=== PATIENT | female | born 1945 | race Hispanic/Latino ===

== ENCOUNTER 2019-05-19 11:10 | Emergency (ER) | payer MEDICARE, OTHER ==
[2019-05-19 13:14] VITALS: BP 150/68
[2019-05-19] MEDS ORDERED: ACETAMINOPHEN 325 MG TAB PO ONE (13:15)
[2019-05-19] MEDS ORDERED: MECLIZINE 25 MG TAB PO ONE (13:39)
[2019-05-19] MEDS ORDERED: ONDANSETRON 4 MG/2 ML INJ IV ONE (13:39)
[2019-05-19] MEDS ORDERED: KETOROLAC 30 MG/1 ML INJ IV ONE (13:40)
[2019-05-19 14:04] LABS: Basophils % (Auto) 0.5 % (0.0-1.8); Eosinophils % (Auto) 0.1 % (0.0-4.3); Hematocrit 27.7 % (30.3-42.9); Hemoglobin 9.5 gm/dl (10.1-14.3); Lymphocytes # (Auto) 1.3 K/mm3 (1.2-5.4); Lymphocytes % (Auto) 15.8 % (13.4-35.0); Mean Corpuscular HGB Conc 34 % (30-34); Monocytes # (Auto) 0.6 K/mm3 (0.0-0.8); Monocytes % (Auto) 7.8 % (0.0-7.3); Red Blood Count 2.44 M/mm3 (3.65-5.03)
[2019-05-19 14:06] LABS: Mean Corpuscular Volume 114 fl (79-97)
[2019-05-19 14:22] LABS: BUN/Creatinine Ratio 20; Blood Urea Nitrogen 10 mg/dL (7-17); Calcium 8.7 mg/dL (8.4-10.2); Hemolysis Index 13
[2019-05-19 14:42] LABS: Platelet Count 89 K/mm3 (140-440)
--- NOTE | 2019-05-19 14:55 | Cat Scan Report ---
CT HEAD WITHOUT CONTRAST INDICATION : Headache after unspecified trauma. TECHNIQUE: Axial, coronal and sagittal CT imaging was performed from the skull apex through the skul l base without contrast. All CT scans at this location are performed using CT dose reduction for ALA RA by means of automated exposure control. COMPARISON: CT head without contrast from 03/26/2015. FINDINGS: PARENCHYMA: No mass, midline shift, hemorrhage, extraaxial collection or acute territorial infarctio n. There is age-appropriate generalized atrophy. Probable chronic microvascular ischemic changes are noted along the periventricular/deep white matter. Basal ganglial calcifications are noted bilaterall y. VENTRICLES: Prominent secondary to atrophy without an acute abnormality. SOFT TISSUES: There is a midline posterior parietal scalp contusion with multifocal gas along the sc alp. Skin jian are partially visualized at this location. The remaining soft tissues appear unrema rkable. No significant abnormality of the orbits is seen. BONES: No acute osseous abnormality. SINUSES: No significant abnormality. ADDITIONAL FINDINGS: There is dense vertebral and internal carotid atherosclerosis. IMPRESSION: 1. No acute intracranial abnormality. 2. Posterior parietal scalp injury. 3. Additional chronic changes as above. Signer Name: Leighton Mcduffie MD Signed: 05/19/2019 2:51 PM Workstation Name: [id number]
[2019-05-19] MEDS ORDERED: ONDANSETRON 4 MG ODT TAB PO ONE (15:54)
[2019-05-19] MEDS ORDERED: HYDROcodone/ACETAMINOPHEN 7.5-325MG TAB PO ONE (15:54)
--- NOTE | 2019-05-19 15:58 | Emergency Department Report ---
ED Head Trauma HPI - General Chief complaint: Nausea/Vomiting/Diarrhea Stated complaint: N/V Time Seen by Provider: 05/19/19 13:29 Source: EMS Mode of arrival: Stretcher Limitations: No Limitations - History of Present Illness Initial comments: Patient is a 74-year-old female who suffered a ground-level fall 2 days ago. Patient states that since the fall she has had persistent nausea vomiting and dizziness whenever she moves her head. Patient was seen at the outside facility and had laceration repaired to the occiput. Patient states she cannot remember whether she had a CT of the head. Patient did have loss of consciousness with the fall. Patient states she has been unable to keep down most of her medications. Patient states she had a glucose of 300 was able to keep down one of her metformin pills earlier today. Patient states the headache is a 9 out of 10 in severity. - Related Data Home Medications Medication Instructions Recorded Confirmed Last Taken Cetirizine HCl [ZyrTEC 10mg cap] 10 mg PO QDAY PRN 05/05/14 03/26/15 03/25/15 Latanoprost 0.005% 1 drop OP QPM 05/05/14 03/26/15 03/25/15 Losartan [Cozaar] 50 mg PO BID 05/05/14 03/26/15 03/25/15 Omeprazole [PriLOSEC] 20 mg PO BID 05/05/14 03/26/15 03/25/15 metFORMIN [Glucophage] 1,000 mg PO BID 05/05/14 03/26/15 03/25/15 Previous Rx's Medication Instructions Recorded Last Taken Type Promethazine [Phenergan] 25 mg PO Q6H PRN #10 tablet 05/06/14 03/25/15 Rx oxyCODONE /ACETAMINOPHEN [Percocet 1 tab PO Q6H PRN #20 tablet 03/28/15 Unknown Rx 5/325 mg] Cyclobenzaprine HCl [Flexeril 5 MG 5 mg PO Q8HR PRN #10 tab 03/20/16 Unknown Rx TAB] Ibuprofen [Motrin] 800 mg PO Q8HR PRN #10 tablet 03/20/16 Unknown Rx HYDROcodone/APAP 5-325 [[place] 1 each PO Q6HR PRN #14 tablet 05/19/19 Unknown Rx 5/325] Meclizine [Antivert] 25 mg PO TID PRN #12 tablet 05/19/19 Unknown Rx Ondansetron [Zofran Odt] 4 mg PO Q8HR #10 tab.rapdis 05/19/19 Unknown Rx Allergies/Adverse reactions: Allergies Allergy/AdvReac Type Severity Reaction Status Date / Time codeine AdvReac Itching Verified 05/05/14 10:50 erythromycin base AdvReac Anaphylaxis Verified 05/05/14 10:50 metoclopramide HCl AdvReac Makes me Verified 05/05/14 12:27 [From Reglan] act crazy Sulfa (Sulfonamide AdvReac BLISTERS Verified 05/05/14 12:27 Antibiotics) IN MOUTH ED Review of Systems ROS: Stated complaint: N/V Other details as noted in HPI Comment: All other systems reviewed and negative ED Past Medical Hx - Past Medical History Previous Medical History?: Yes Hx Hypertension: Yes Hx Diabetes: Yes Hx GERD: Yes Hx Arthritis: Yes (hands) Hx Tuberculosis: Yes (childhood) Additional medical history: GLAUCOMA - Surgical History Past Surgical History?: Yes Hx Cholecystectomy: Yes (05/17) Additional Surgical History: Spine Surgery December 2014 - Social History Smoking Status: Unknown if ever smoked Substance Use Type: None - Medications Home Medications: Home Medications Medication Instructions Recorded Confirmed Last Taken Type Cetirizine HCl [ZyrTEC 10mg cap] 10 mg PO QDAY PRN 05/05/14 03/26/15 03/25/15 History Latanoprost 0.005% 1 drop OP QPM 05/05/14 03/26/15 03/25/15 History Losartan [Cozaar] 50 mg PO BID 05/05/14 03/26/15 03/25/15 History Omeprazole [PriLOSEC] 20 mg PO BID 05/05/14 03/26/15 03/25/15 History metFORMIN [Glucophage] 1,000 mg PO BID 05/05/14 03/26/15 03/25/15 History Promethazine [Phenergan] 25 mg PO Q6H PRN #10 tablet 05/06/14 03/26/15 03/25/15 Rx oxyCODONE /ACETAMINOPHEN [Percocet 1 tab PO Q6H PRN #20 tablet 03/28/15 Unknown Rx 5/325 mg] Cyclobenzaprine HCl [Flexeril 5 MG 5 mg PO Q8HR PRN #10 tab 03/20/16 Unknown Rx TAB] Ibuprofen [Motrin] 800 mg PO Q8HR PRN #10 tablet 03/20/16 Unknown Rx HYDROcodone/APAP 5-325 [[place] 1 each PO Q6HR PRN #14 tablet 05/19/19 Unknown Rx 5/325] Meclizine [Antivert] 25 mg PO TID PRN #12 tablet 05/19/19 Unknown Rx Ondansetron [Zofran Odt] 4 mg PO Q8HR #10 tab.rapdis 05/19/19 Unknown Rx ED Physical Exam - General Limitations: No Limitations General appearance: alert, in no apparent distress - Head Head exam: Present: normocephalic. Absent: atraumatic (`jian in place at posterior scalp) - Eye Eye exam: Present: normal appearance, PERRL, EOMI - ENT ENT exam: Present: mucous membranes moist - Neck Neck exam: Present: normal inspection - Respiratory Respiratory exam: Present: normal lung sounds bilaterally. Absent: respiratory distress - Cardiovascular Cardiovascular Exam: Present: regular rate, normal rhythm. Absent: systolic murmur, diastolic murmur, rubs, gallop - GI/Abdominal GI/Abdominal exam: Present: soft, normal bowel sounds. Absent: distended, tenderness, guarding, rebound - Extremities Exam Extremities exam: Present: normal inspection, full ROM, tenderness (bilateral forearms) - Back Exam Back exam: Present: normal inspection - Neurological Exam Neurological exam: Present: alert, oriented X3 - Psychiatric Psychiatric exam: Present: normal affect, normal mood - Skin Skin exam: Present: warm, dry, intact, normal color. Absent: rash ED Course Vital Signs 05/19/19 05/19/19 05/19/19 11:10 12:03 12:30 Temperature 97.8 F Pulse Rate 63 65 68 Respiratory 14 14 13 Rate Blood Pressure 146/65 150/62 O2 Sat by Pulse 97 99 98 Oximetry 05/19/19 13:00 Temperature Pulse Rate 62 Respiratory 11 L Rate Blood Pressure 150/68 O2 Sat by Pulse 100 Oximetry - Lab Data Result diagrams: 05/19/19 13:32 05/19/19 13:41 Lab Results 05/19/19 05/19/19 Range/Units 13:32 13:41 WBC 8.4 (4.5-11.0) K/mm3 RBC 2.44 L (3.65-5.03) M/mm3 Hgb 9.5 L (10.1-14.3) gm/dl Hct 27.7 L (30.3-42.9) % MCV 114 H (79-97) fl MCH 39 H (28-32) pg MCHC 34 (30-34) % RDW 14.0 (13.2-15.2) % Plt Count 89 L (140-440) K/mm3 Lymph % (Auto) 15.8 (13.4-35.0) % [place] % (Auto) 7.8 H (0.0-7.3) % Eos % (Auto) 0.1 (0.0-4.3) % Baso % (Auto) 0.5 (0.0-1.8) % Lymph # 1.3 (1.2-5.4) K/mm3 [place] # 0.6 (0.0-0.8) K/mm3 Eos # 0.0 (0.0-0.4) K/mm3 Baso # 0.0 (0.0-0.1) K/mm3 Seg Neutrophils % 75.8 H (40.0-70.0) % Seg Neutrophils # 6.3 (1.8-7.7) K/mm3 Sodium 137 (137-145) mmol/L Potassium 3.7 (3.6-5.0) mmol/L Chloride 99.4 (98-107) mmol/L Carbon Dioxide 20 L (22-30) mmol/L Anion Gap 21 mmol/L BUN 10 (7-17) mg/dL Creatinine 0.5 L (0.7-1.2) mg/dL Estimated GFR > 60 ml/min BUN/Creatinine Ratio 20 % Glucose 166 H (65-100) mg/dL Calcium 8.7 (8.4-10.2) mg/dL Despite the patient's nausea vomiting and unable to keep down her medications her glucose is only slightly elevated the patient is not in DKA - Radiology Data CT HEAD WITHOUT CONTRAST INDICATION : Headache after unspecified trauma. TECHNIQUE: Axial, coronal and sagittal CT imaging was performed from the skull apex through the skull base without contrast. All CT scans at this location are performed using CT dose reduction for ALARA by means of automated exposure control. COMPARISON: CT head without contrast from 03/26/2015. FINDINGS: PARENCHYMA: No mass, midline shift, hemorrhage, extraaxial collection or acute territorial infarction. There is age-appropriate generalized atrophy. Probable chronic microvascular ischemic changes are noted along the periventricular/deep white matter. Basal ganglial calcifications are noted bilaterally. VENTRICLES: Prominent secondary to atrophy without an acute abnormality. SOFT TISSUES: There is a midline posterior parietal scalp contusion with multifocal gas along the scalp. Skin jian are partially visualized at this location. The remaining soft tissues appear u nremarkable. No significant abnormality of the orbits is seen. BONES: No acute osseous abnormality. SINUSES: No significant abnormality. ADDITIONAL FINDINGS: There is dense vertebral and internal carotid atherosclerosis. IMPRESSION: 1. No acute intracranial abnormality. 2. Posterior parietal scalp injury. 3. Additional chronic changes as above. Signer Name: Leighton Mcduffie MD Signed: 05/19/2019 2:51 PM Workstation Name: [id number] - Medical Decision Making CT head was ordered to ensure that the patient did not have an intracranial hemorrhage. Patient's had persistent headache and dizziness since head injury. Patient states she is unaware of receiving a CT at the outside facility. Patient did have loss of consciousness. CT shows no intracranial bleed. Patient was given medications with dramatic relief. Her nausea was controlled and she was able to keep down Vicodin here in the emergency department. Patient be discharged home. Critical care attestation.: If time is entered above; I have spent that time in minutes in the direct care o f this critically ill patient, excluding procedure time. ED Disposition Clinical Impression: Post concussion syndrome, Nausea & vomiting, Type 2 diabetes mellitus Disposition: - TO HOME OR SELFCARE Is pt being admited?: No Does the pt Need Aspirin: No Condition: Stable Instructions: Concussion (ED), Post Concussion Syndrome (ED) Time of Disposition: 16:00
== END 2019-05-19 16:19 | disposition home or self-care (01) ==
LOC: ED 11:10
DX: F07.81 Postconcussional syndrome (principal); E11.9 Type 2 diabetes mellitus without complications; R11.2 Nausea with vomiting, unspecified; I10 Essential (primary) hypertension; K21.9 Gastro-esophageal reflux disease without esophagitis; M19.042 Primary osteoarthritis, left hand; M19.041 Primary osteoarthritis, right hand; Z90.49 Acquired absence of other specified parts of digestive tract
CPT/HCPCS: 36415; 70450; 80048; 85025; 96374; 96375; 99284; J1885; J2405; Q0162

== ENCOUNTER 2022-01-18 10:31 | Emergency (ER) | payer MEDICARE, OTHER ==
[2022-01-18] MEDS ORDERED: SODIUM CHLORIDE 0.9% 1000 ML 1,000 ML IV ONE (12:54)
--- NOTE | 2022-01-18 13:00 | Emergency Department Report ---
ED Syncope HPI - General Chief Complaint: Syncope Stated Complaint: SYNCOPAL EPISODE Time Seen by Provider: 01/18/22 12:54 - History of Present Illness Initial Comments: 76 yo F with h/o Htn and diabetes with dementia currently on medications such as memantine, metoprolol and furosemide who now present with an episode of syncope that occurred while she was going to the toilet at night. Pt also mentioned that she has been having gait problem for the last 4 months and have seen several doctors but not neurologist. She also mentioned that she has been having dark tarred stool for that same time and have had blood product infusions as well. No fever or chills reported. No other modifying or associated factors reported. - Related Data Allergies/Adverse Reactions: Allergies codeine Adverse Reaction (Verified 01/18/22 10:50) Itching erythromycin base Adverse Reaction (Verified 01/18/22 10:50) Anaphylaxis metoclopramide HCl [From Reglan] Adverse Reaction (Verified 01/18/22 10:50) Makes me act crazy Sulfa (Sulfonamide Antibiotics) Adverse Reaction (Verified 01/18/22 10:50) BLISTERS IN MOUTH Home Medications: Ambulatory Orders Cetirizine HCl [ZyrTEC 10mg cap] 10 mg PO QDAY PRN 05/05/14 Latanoprost 0.005% 1 drop OP QPM 05/05/14 Losartan [Cozaar] 50 mg PO BID 05/05/14 Omeprazole [PriLOSEC] 20 mg PO BID 05/05/14 metFORMIN [Glucophage] 1,000 mg PO BID 05/05/14 Promethazine [Phenergan] 25 mg PO Q6H PRN #10 tablet 05/06/14 oxyCODONE /ACETAMINOPHEN [Percocet 5/325 mg] 1 tab PO Q6H PRN #20 tablet 03/28/15 Cyclobenzaprine HCl [Flexeril 5 MG TAB] 5 mg PO Q8HR PRN #10 tab 03/20/16 Ibuprofen [Motrin] 800 mg PO Q8HR PRN #10 tablet 03/20/16 HYDROcodone/APAP 5-325 [[place] 5/325] 1 each PO Q6HR PRN #14 tablet 05/19/19 Meclizine [Antivert] 25 mg PO TID PRN #12 tablet 05/19/19 Ondansetron [Zofran Odt] 4 mg PO Q8HR #10 tab.rapdis 05/19/19 ED Review of Systems ROS: Stated complaint: SYNCOPAL EPISODE Other details as noted in HPI Comment: All other systems reviewed and negative Cardiovascular: syncope Gastrointestinal: melena ED Past Medical Hx - Past Medical History Previous Medical History?: Yes Hx Hypertension: Yes Hx Diabetes: Yes Hx GERD: Yes Hx Arthritis: Yes (hands) Hx Tuberculosis: Yes (childhood) Additional medical history: GLAUCOMA - Surgical History Past Surgical History?: Yes Hx Cholecystectomy: Yes (05/17) Additional Surgical History: Spine Surgery December 2014 - Social History Smoking Status: Unknown if ever smoked Substance Use Type: None - Medications Home Medications: Home Medications Medication Instructions Recorded Confirmed Last Taken Type Cetirizine HCl [ZyrTEC 10mg cap] 10 mg PO QDAY PRN 05/05/14 03/26/15 03/25/15 History Latanoprost 0.005% 1 drop OP QPM 05/05/14 03/26/15 03/25/15 History Losartan [Cozaar] 50 mg PO BID 05/05/14 03/26/15 03/25/15 History Omeprazole [PriLOSEC] 20 mg PO BID 05/05/14 03/26/15 03/25/15 History metFORMIN [Glucophage] 1,000 mg PO BID 05/05/14 03/26/15 03/25/15 History Promethazine [Phenergan] 25 mg PO Q6H PRN #10 tablet 05/06/14 03/26/15 03/25/15 Rx oxyCODONE /ACETAMINOPHEN [Percocet 1 tab PO Q6H PRN #20 tablet 03/28/15 Unknown Rx 5/325 mg] Cyclobenzaprine HCl [Flexeril 5 MG 5 mg PO Q8HR PRN #10 tab 03/20/16 Unknown Rx TAB] Ibuprofen [Motrin] 800 mg PO Q8HR PRN #10 tablet 03/20/16 Unknown Rx HYDROcodone/APAP 5-325 [[place] 1 each PO Q6HR PRN #14 tablet 05/19/19 Unknown Rx 5/325] Meclizine [Antivert] 25 mg PO TID PRN #12 tablet 05/19/19 Unknown Rx Ondansetron [Zofran Odt] 4 mg PO Q8HR #10 tab.rapdis 05/19/19 Unknown Rx ED Physical Exam - General Limitations: No Limitations General appearance: alert, in no apparent distress - Head Head exam: Present: normal inspection - Eye Eye exam: Present: normal appearance Pupils: Present: normal accommodation - ENT ENT exam: Present: normal exam, normal orophraynx, mucous membranes moist - Respiratory Respiratory exam: Present: normal lung sounds bilaterally. Absent: respiratory distress, accessory muscle use - Cardiovascular Cardiovascular Exam: Present: regular rate, normal rhythm, normal heart sounds - GI/Abdominal GI/Abdominal exam: Present: soft, normal bowel sounds. Absent: distended, tenderness - Extremities Exam Extremities exam: Present: normal inspection, full ROM, normal capillary refill. Absent: tenderness, pedal edema, joint swelling - Back Exam Back exam: Absent: tenderness - Neurological Exam Neurological exam: Present: alert, oriented X3 - Psychiatric Psychiatric exam: Present: normal affect, normal mood - Skin Skin exam: Present: warm, normal color ED Course Vital Signs 01/18/22 01/18/22 10:48 12:21 Temperature 97.8 F Pulse Rate 84 77 Respiratory 14 18 Rate Blood Pressure 142/67 142/66 [Left] O2 Sat by Pulse 99 98 Oximetry ED Medical Decision Making - Lab Data Result diagrams: 01/18/22 13:03 - EKG Data -: EKG Interpreted by Me EKG shows normal: sinus rhythm Rate: normal - EKG Data Interpretation: no acute changes, nonspecific ST-T wave jossie - Medical Decision Making Here with syncope episode while this is likely vasovagal related to dehydration considering this patient medication --Metoprolol and Furosemide --but differential could be and not limited to seizure, symptomatic anemia, myocardial infarction, pulmonary embolism, anxiety, CVA especially posterior stroke or thyroid abnormality--in order to rule those out I will go ahead and order routine cardiopulmonary work-up that include troponin, EKG, chest x-ray, BNP, CKMB, and CBC, CMP, Urinalysis and thyroid panel for any correctable infectious process or electrolyte abnormality as a cause. Will also order CT brain for any intracranial abnormality as mentioned above. In the meantime will give ivf ns 1L bolus for hydration as most are dehydrated in the hot weather anyway. I was informed that patient decided to sign out AMA -- when her arrived at the bedside. Pt informed me that the use to help with her medications but has not done that for the last 5 days because she refused to have sex with him. She explained to me that she does not have enough energy to do that he will not understand. Critical care attestation.: If time is entered above; I have spent that time in minutes in the direct care of this critically ill patient, excluding procedure time. ED Disposition Clinical Impression: Syncope and collapse Disposition: 07 LEFT AGAINST MEDICAL ADVICE Is pt being admited?: No Does the pt Need Aspirin: No Condition: Stable Instructions: Near-Syncope, [id number], Syncope, [id number], Syncope (ED) Additional Instructions: Even though you are signing out AGAINST MEDICAL ADVICE you encouraged to call or return to emergency room if your symptoms recur or worsen you will be reevaluated and treated appropriately Time of Disposition: 13:37
[2022-01-18 13:27] LABS: Basophils % (Auto) 0.8 % (0.0-1.8); Eosinophils % (Auto) 0.5 % (0.0-4.3); Hematocrit 29.1 % (30.3-42.9); Lymphocytes # (Auto) 1.2 K/mm3 (1.2-5.4); Lymphocytes % (Auto) 22.5 % (13.4-35.0); Mean Corpuscular HGB Conc 35 % (30-34); Monocytes # (Auto) 0.5 K/mm3 (0.0-0.8); Red Blood Count 2.49 M/mm3 (3.65-5.03); Red Cell Distribution Width 13.3 % (13.2-15.2)
[2022-01-18 13:30] LABS: Mean Corpuscular Volume 117 fl (79-97); Platelet Count 74 K/mm3 (140-440)
[2022-01-18 13:37] LABS: INR 1.11 (0.87-1.13)
[2022-01-18 14:01] VITALS: BP 129/68
--- NOTE | 2022-01-19 12:22 | Electrocardiograph Report ---
[facility] Test Date: 2022-01-18 Test Time: 12:13:22 Pat Name: GABE GE Department: Room: Gender: F Steam Hand: TV : 1945 Requested By: SUSY BATRES Order Number: [id number] Reading MD: Fidel Shahid Measurements Intervals [place] Rate: 79 P: 46 CO: 165 QRS: 16 QRSD: 61 T: 43 QT: 360 QTc: 413 Interpretive Statements Sinus rhythm Low voltage, precordial leads No previous ECG available for comparison Electronically Signed On 01-19-2022 12:22:43 EDT by Fidel Shahid
== END 2022-01-18 14:00 | disposition left against medical advice (07) ==
LOC: ED 10:31
DX: R55 Syncope and collapse (principal); I10 Essential (primary) hypertension; E11.9 Type 2 diabetes mellitus without complications; K21.9 Gastro-esophageal reflux disease without esophagitis; M19.90 Unspecified osteoarthritis, unspecified site; A15.9 Respiratory tuberculosis unspecified; Z90.49 Acquired absence of other specified parts of digestive tract
CPT/HCPCS: 36415; 85025; 85610; 93005; 96372; 99284; J7030